=== PATIENT | female | born 1975 | race Caucasian/White ===

== ENCOUNTER → 2019-08-17 08:15 | Outpatient (BNVA) | payer BC, SELFPAY | PROVIDERS: Family Provider Electrodiagnostic Medicine; Visit Provider Obstetrics & Gynecology | DX: N83.8 Other noninflammatory disorders of ovary, fallopian tube and broad ligament (principal); Z90.721 Acquired absence of ovaries, unilateral | CPT/HCPCS: 76830 ==

== ENCOUNTER 2019-08-21 08:00 | Outpatient (CLI) | payer BC, SELFPAY ==
--- NOTE | 2019-08-21 08:06 | MM_ITS ---
WS: [id number] DIAGNOSTIC BILATERAL DIGITAL MAMMOGRAM WITH CAD RIGHT breast ultrasound, limited HISTORY: 6 MO F/U RT BREAST NODULE COMPARISON: 02/05/2019, 08/06/2018, 02/03/2018 and 01/20/2018 TECHNIQUE: Bilateral craniocaudad, mediolateral oblique, and mediolateral views are submitted. Spot c ompression RIGHT CC. Computer aided detection utilized. Breast composition: The breasts are heterogeneously dense, which may obscure small masses. 2 lymph no negrita in the upper outer quadrant of the RIGHT breast are again identified each measuring about 6 mm. N o increase in size. No new mass is or calcifications. RIGHT breast ultrasound, limited. Follow-up ultrasound to the upper outer quadrant of the RIGHT breast. Benign lymph nodes are reidenti fied in the upper outer quadrant of the RIGHT breast. Largest lymph node measures 5 x 4 mm. At 10:00 there is a small ovoid cyst measuring 9 mm. MM/[place] [id number] IMPRESSION: BI-RADS: 2-Benign FOLLOW UP: 1 Year Follow-up
== END 2019-08-21 08:01 | disposition home or self-care (01) ==
LOC: RADSHAW 08:03
PROVIDERS: Family Provider Electrodiagnostic Medicine; PCP Electrodiagnostic Medicine; Visit Provider Obstetrics & Gynecology
DX: N63.11 Unspecified lump in the right breast, upper outer quadrant (principal); R92.8 Other abnormal and inconclusive findings on diagnostic imaging of breast
CPT/HCPCS: 76642; 77066

== ENCOUNTER → 2019-08-30 12:19 | Outpatient (BNVA) | payer BC, SELFPAY | PROVIDERS: Family Provider Electrodiagnostic Medicine; PCP Electrodiagnostic Medicine; Visit Provider Nurse Practitioner | DX: J10.1 Influenza due to other identified influenza virus with other respiratory manifestations (principal); R05 Cough; R50.9 Fever, unspecified | CPT/HCPCS: 87804 ==

== ENCOUNTER → 2020-03-09 08:12 | Outpatient (BNVA) | payer BC, SELFPAY | PROVIDERS: Family Provider Electrodiagnostic Medicine; PCP Electrodiagnostic Medicine; Visit Provider Obstetrics & Gynecology | DX: N89.8 Other specified noninflammatory disorders of vagina (principal); Z97.5 Presence of (intrauterine) contraceptive device | CPT/HCPCS: 76830 ==

== ENCOUNTER 2020-03-15 11:15 | Outpatient (CLI) | payer BC, MEDICAID, SELFPAY ==
--- NOTE | 2020-03-15 11:39 | MR_ITS ---
WS: [id number] MRI OF THE PELVIS WITHOUT AND WITH GADOLINIUM ENHANCEMENT INDICATION: Left ovarian mass COMPARISON: Ultrasound March 09, 2020 and MRI TECHNIQUE: MR of the pelvis without and with gadolinium enhancement. Axial T1, axial T2, sagittal T2, coronal T1, coronal STIR, coronal T2 with fat sat, and post gadolinium imaging was obtained with fat saturation technique. FINDINGS: Prior postoperative changes right oophorectomy. Mild uterine enlargement. Anteverted uterus . Uterine myometrium and endometrium signal characteristics are unremarkable. IUD in place. Again seen is the enhancing left adnexal mass inseparable from the inferior left ovary and lower uter ine segment. This demonstrates slight T2 hyperintensity with homogeneous enhancement. Today this mass measures 2.5 x 4.6 x 3.1 CM. Previously this measured 2.5 x 4.5 x 3.4 cm not significantly changed. Otherwise left ovarian parenchyma is normal in appearance with a few small cysts and follicles. Assoc iated mild mass effect on the left adnexa and left aspect of the uterus. Peripheral enhancing left ov alex cyst likely represents corpus luteum cyst measuring 2.8 cm. Small amount of free fluid in the pelvis. No evidence of pelvic or inguinal lymphadenopathy. Normal s igmoid colon. MR/MR pelvis wo/w con [id number] IMPRESSION: 1. Again seen is the enhancing left ovarian mass inseparable from the left ova ry and lower uterine segment today measuring 2.5 x 4.6 x 3.1 CM. Previously thi s measured 2.5 x 4.5 x 3.4 cm not significantly changed in the interval. 2. Differential considerations are unchanged and include benign and malignant ovarian neoplasms or less likely exophytic fibroid. Recommend continued surveil abner versus surgical removal. 3. Prior right oophorectomy. 4. Small amount of free fluid in the pelvis. 5. IUD within the endometrium.
== END 2020-03-15 11:16 | disposition home or self-care (01) ==
LOC: RADWPI 11:19
PROVIDERS: PCP Electrodiagnostic Medicine; Visit Provider Obstetrics & Gynecology
DX: N83.8 Other noninflammatory disorders of ovary, fallopian tube and broad ligament (principal); Z90.721 Acquired absence of ovaries, unilateral; Z97.5 Presence of (intrauterine) contraceptive device
CPT/HCPCS: 72197; A9579

== ENCOUNTER → 2022-10-01 13:59 | Outpatient (BNVA) | payer SELFPAY | PROVIDERS: PCP Electrodiagnostic Medicine; Visit Provider Nurse Practitioner Family | DX: N39.0 Urinary tract infection, site not specified (principal) | CPT/HCPCS: 81000 ==

== ENCOUNTER 2022-10-18 11:50 | Outpatient (CLI) | payer MEDICAID, SELFPAY ==
--- NOTE | 2022-10-18 12:05 | XRR_ITS ---
PROCEDURE INFORMATION: Exam: XR Left Hand Exam date and time: 10/18/2022 12:07 PM Age: 47 years old Clinical indication: Pain and injury or trauma; Crushing; Left; Injury date: 2 months ago; Injury details: Lt hand pain for 2 months, dog chain wrapped around fingers; Additional info: 3rd and 5th finger injury left TECHNIQUE: Imaging protocol: Radiologic exam of the left hand. Views: 3 or more views. COMPARISON: No relevant prior studies available. FINDINGS: Bones/joints: Normal. Soft tissues: Normal. XR/XR hand LT min 3V* [id number] IMPRESSION: No acute findings.
== END 2022-10-18 11:51 | disposition home or self-care (01) ==
PROVIDERS: PCP Electrodiagnostic Medicine; Visit Provider Emergency Medicine
DX: S60.052D Contusion of left little finger without damage to nail, subsequent encounter (principal); S60.032D Contusion of left middle finger without damage to nail, subsequent encounter; X58.XXXD Exposure to other specified factors, subsequent encounter
CPT/HCPCS: 73130

== ENCOUNTER → 2024-08-14 15:09 | Outpatient (BNVA) | payer OTHER, SELFPAY | PROVIDERS: PCP Electrodiagnostic Medicine; Visit Provider Nurse Practitioner Family | DX: R39.9 Unspecified symptoms and signs involving the genitourinary system (principal) | CPT/HCPCS: 81000 ==

== ENCOUNTER → 2024-10-29 09:57 | Outpatient (BNVA) | payer OTHER, SELFPAY | PROVIDERS: Visit Provider Nurse Practitioner | DX: E66.9 Obesity, unspecified (principal); M54.42 Lumbago with sciatica, left side; M54.41 Lumbago with sciatica, right side; G89.29 Other chronic pain; R03.0 Elevated blood-pressure reading, without diagnosis of hypertension; M25.562 Pain in left knee | CPT/HCPCS: 80053; 80061; 84443; 85025 ==

== ENCOUNTER 2024-11-05 09:09 | Outpatient (CLI) | payer OTHER, SELFPAY ==
--- NOTE | 2024-11-05 09:20 | MM_ITS ---
WS: [id number] BILATERAL SCREENING DIGITAL TOMOSYNTHESIS MAMMOGRAM WITH CAD HISTORY: Z12.39 - Encounter for other screening for malignant neop... COMPARISON: 08/21/2019, 02/05/2019 Bilateral CC and MLO views with tomosynthesis and synthetic mammography submitted. Computer aided detection analyzed. Breast composition: The breasts are heterogeneously dense, which may obscure small masses. No suspicious masses, microcalcifications or architectural distortion. Benign lymph node upper outer quadrant RIGHT breast. MM/MM scr BI tomosynthesis [id number] IMPRESSION: BI-RADS: 2 - Benign FOLLOW UP: 1 Year Follow-up
== END 2024-11-05 09:10 | disposition home or self-care (01) ==
LOC: RAD 09:09
PROVIDERS: PCP Nurse Practitioner; Visit Provider Nurse Practitioner
DX: Z12.31 Encounter for screening mammogram for malignant neoplasm of breast (principal); R92.333 Mammographic heterogeneous density, bilateral breasts; R59.0 Localized enlarged lymph nodes
CPT/HCPCS: 77063; 77067

== ENCOUNTER → 2024-11-20 14:11 | Outpatient (BNVA) | payer OTHER, SELFPAY | PROVIDERS: PCP Nurse Practitioner; Visit Provider Nurse Practitioner | DX: M17.12 Unilateral primary osteoarthritis, left knee (principal); G89.29 Other chronic pain | CPT/HCPCS: 73562 ==

== ENCOUNTER → 2024-12-10 08:35 | Outpatient (BNVA) | payer OTHER, SELFPAY | PROVIDERS: PCP Nurse Practitioner; Visit Provider Physician Assistant | DX: M25.561 Pain in right knee (principal); M25.562 Pain in left knee; G89.29 Other chronic pain; M17.0 Bilateral primary osteoarthritis of knee | CPT/HCPCS: 73560; 73565 ==

== ENCOUNTER 2024-12-10 10:29 | Outpatient (CLI) | payer OTHER, SELFPAY | END 2024-12-10 10:30 | disposition home or self-care (01) | LOC: SPT 10:30 | PROVIDERS: PCP Nurse Practitioner; Visit Provider Physician Assistant | DX: Z46.89 Encounter for fitting and adjustment of other specified devices (principal); M17.0 Bilateral primary osteoarthritis of knee | CPT/HCPCS: L1851 ==

== ENCOUNTER → 2024-12-17 15:08 | Outpatient (BNVA) | payer OTHER, SELFPAY | PROVIDERS: PCP Nurse Practitioner; Referring Provider Nurse Practitioner; Visit Provider Nurse Practitioner | DX: M51.360 Other intervertebral disc degeneration, lumbar region with discogenic back pain only (principal) | CPT/HCPCS: 72100 ==

== ENCOUNTER → 2025-01-07 12:51 | Outpatient (BNVA) | payer OTHER, SELFPAY | PROVIDERS: PCP Nurse Practitioner; Visit Provider Physician Assistant | DX: R50.9 Fever, unspecified (principal); J02.9 Acute pharyngitis, unspecified | CPT/HCPCS: 87071; 87400; 87880 ==

== ENCOUNTER 2025-01-08 09:10 | Outpatient (CLI) | payer OTHER, SELFPAY ==
--- NOTE | 2025-01-08 09:30 | MR_ITS ---
WS: [id number] MRI LUMBAR SPINE NONCONTRAST TECHNIQUE: Sagittal T1, T2 and STIR imaging. Axial T1 and T2 imaging. CLINICAL INFORMATION: M54.42 - Lumbago with sciatica, left side COMPARISON: None. FINDINGS: Mild lumbar curve. No acute compression. Slight anterolisthesis L4 on L5. No high-grade central canal stenosis. L1-L2: Mild facet arthropathy. L2-L3: Moderate facet arthropathy. Spinal canal and foramen are patent. L3-L4: No significant disc bulging. Mild facet arthropathy. Spinal canal and foramen are patent. L4-L5: Mild disc bulging with impingement LEFT subarticular recess and traversing LEFT L5 nerve root. Moderate to advanced arthropathy with ligamentum flavum hypertrophy. Mild LEFT foraminal narrowing. Mild central canal stenosis. Impingement of traversing LEFT L5 nerve root. L5-S1: Disc osteophyte complex with endplate ridging. Moderate to advanced facet arthropathy. Tiny annular fissure. Eccentric disc bulging with slight encroachment on the far exiting LEFT greater than RIGHT L5 nerve roots Visualized pelvic bony structures: Normal. Paravertebral soft tissues: Normal. Mild central canal stenosis in the cervical spine on call worker imaging at C4-C6. Partially visualized lobulated structure probably fibroid uterine fundus although incompletely visualized. This can be followed up with ultrasound. MR/MR lumbar spine wo con* [id number] IMPRESSION: 1. Mild lumbar curve. No acute compression. No high-grade central canal stenos is. 2. Disc bulging L4-5 with impingement LEFT subarticular recess and traversing LEFT L5 nerve root. Mild central canal stenosis. Moderate facet arthropathy. Mi ld LEFT foraminal narrowing at this level. 3. Disc bulging L5-S1 with a tiny annular fissure. 4. Moderate to advanced facet arthropathy L4-L5 and L5-S1. 5. Partially visualized lobulated structure in the pelvis may represent a fibr oid uterus but incompletely included on this study. This can be followed up wit h ultrasound.
== END 2025-01-08 09:11 | disposition home or self-care (01) ==
LOC: RAD 09:12
PROVIDERS: PCP Nurse Practitioner; Visit Provider Nurse Practitioner
DX: M47.816 Spondylosis without myelopathy or radiculopathy, lumbar region (principal); M51.362 Other intervertebral disc degeneration, lumbar region with discogenic back pain and lower extremity pain; M48.062 Spinal stenosis, lumbar region with neurogenic claudication; M51.372 Other intervertebral disc degeneration, lumbosacral region with discogenic back pain and lower extremity pain; M47.817 Spondylosis without myelopathy or radiculopathy, lumbosacral region
CPT/HCPCS: 72148

== ENCOUNTER → 2025-01-19 12:30 | Outpatient (BNVA) | payer OTHER, SELFPAY | PROVIDERS: PCP Nurse Practitioner; Visit Provider Emergency Medicine | DX: R39.9 Unspecified symptoms and signs involving the genitourinary system (principal) | CPT/HCPCS: 81000; 87077; 87086; 87184 ==

== ENCOUNTER → 2025-01-28 14:19 | Outpatient (BNVA) | payer OTHER, SELFPAY | PROVIDERS: PCP Nurse Practitioner; Visit Provider Nurse Practitioner | DX: Z87.440 Personal history of urinary (tract) infections (principal) | CPT/HCPCS: 87086 ==

== ENCOUNTER → 2025-04-08 14:10 | Outpatient (BNVA) | payer OTHER, SELFPAY | PROVIDERS: PCP Nurse Practitioner; Visit Provider Nurse Practitioner | DX: I10 Essential (primary) hypertension (principal) | CPT/HCPCS: 80053; 80061; 85025 ==

== ENCOUNTER 2025-04-13 11:25 | Outpatient (CLI) | payer OTHER, SELFPAY | END 2025-04-13 11:26 | disposition home or self-care (01) | LOC: SPT 11:28 | PROVIDERS: PCP Nurse Practitioner; Visit Provider Physician Assistant | DX: Z46.89 Encounter for fitting and adjustment of other specified devices (principal); M17.0 Bilateral primary osteoarthritis of knee; M23.91 Unspecified internal derangement of right knee | CPT/HCPCS: L1812 ==

== ENCOUNTER 2025-05-06 09:16 | Outpatient (CLI) | payer OTHER, SELFPAY ==
--- NOTE | 2025-05-06 09:30 | MR_ITS ---
WS: [id number] MRI RIGHT KNEE HISTORY: derangement of right knee COMPARISON: 12/10/2024 radiographs Anterior cruciate ligament: Intact. Posterior cruciate ligament: Intact. Medial collateral ligament: MCL is intact. There is fluid on both sides of the MCL. Posterior lateral corner structures: Intact. Medial menisci: Fraying of the articular surfaces. Loss of the normal contour and signal in the meniscal root. Anterior horn appears normal. Lateral meniscus: Intact. Normal signal, size and shape. Extensor mechanism: Distal quadriceps tendon is intact. Mild tendinopathy in the distal patellar tendon. Fluid and soft tissue: Small suprapatellar joint effusion. Small Oliver's cyst. Mild soft tissue edema surrounding the knee. Osseous and articular structures: Patellofemoral compartment: Moderate narrowing patellofemoral joint space. Complete loss of cartilage along the lateral patellar facet. Small osteophytes along the margins of the patella. There is a small amount of subchondral marrow edema at the patellar eminence and along the lateral facet. Medial compartment: Moderate to severe narrowing the medial compartment. Near complete loss of cartilage. Marrow edema along the femoral condyle and tibial plateau. Lateral compartment: Moderate narrowing lateral compartment with moderate diffuse chondromalacia. Marginal osteophytes. No fracture or edema. There is a small complex fluid collection measuring 1.3 cm adjacent to the medial femoral condyle. This may be part of a complex Oliver's cyst as there does appear to be a small tract extending inferiorly adjacent to the semimembranosus tendon. Ganglion within the differential. MR/MR knee RT wo con* [id number] IMPRESSION: 1. No ACL tear. 2. Mild MCL sprain. 3. Complex tear meniscal root posterior horn medial meniscus. 4. Moderate to severe narrowing of the medial compartment with near complete l oss of cartilage. Small amount of marrow edema in the femoral condyle and tibia l plateau. 5. Moderate narrowing at the patellofemoral joint and the lateral compartment. 6. Complete loss of cartilage along the lateral patellar facet with subchondra l edema. 7. Oliver's cyst. 8. Additional complex fluid collection measuring 1.3 cm adjacent to the medial femoral condyle. This may be extension of the Oliver's cyst or a small ganglion .
== END 2025-05-06 09:17 | disposition home or self-care (01) ==
LOC: RAD 09:17
PROVIDERS: PCP Nurse Practitioner; Visit Provider Physician Assistant
DX: M17.0 Bilateral primary osteoarthritis of knee (principal); M23.91 Unspecified internal derangement of right knee; S83.411A Sprain of medial collateral ligament of right knee, initial encounter; S83.231A Complex tear of medial meniscus, current injury, right knee, initial encounter; X58.XXXA Exposure to other specified factors, initial encounter; M24.10 Other articular cartilage disorders, unspecified site; M22.2X1 Patellofemoral disorders, right knee; M25.461 Effusion, right knee; R93.6 Abnormal findings on diagnostic imaging of limbs; M71.21 Synovial cyst of popliteal space [Baker], right knee
CPT/HCPCS: 73721

== ENCOUNTER → 2025-05-20 13:22 | Outpatient (BNVA) | payer OTHER, SELFPAY | PROVIDERS: PCP Nurse Practitioner; Visit Provider Nurse Practitioner Women's Health | DX: N92.6 Irregular menstruation, unspecified (principal) | CPT/HCPCS: 76830 ==

== ENCOUNTER → 2025-06-10 15:35 | Outpatient (BNVA) | payer OTHER, SELFPAY | PROVIDERS: PCP Nurse Practitioner; Visit Provider Obstetrics & Gynecology | DX: E66.9 Obesity, unspecified (principal); N60.19 Diffuse cystic mastopathy of unspecified breast; N83.8 Other noninflammatory disorders of ovary, fallopian tube and broad ligament; N92.0 Excessive and frequent menstruation with regular cycle; D68.9 Coagulation defect, unspecified | CPT/HCPCS: 81025; 81500; 84146; 84443; 85025 ==

== ENCOUNTER → 2025-06-30 16:56 | Outpatient (BNVA) | payer OTHER, SELFPAY | PROVIDERS: PCP Nurse Practitioner; Visit Provider Obstetrics & Gynecology | DX: Z12.4 Encounter for screening for malignant neoplasm of cervix (principal) | CPT/HCPCS: 87624 ==